=== PATIENT | female | born 1995 | race Hispanic/Latino ===

== ENCOUNTER 2018-09-16 17:10 | Emergency (ER) | payer BC ==
[2018-09-16 18:16] VITALS: BP 109/77
--- NOTE | 2018-09-16 18:52 | Emergency Department Report ---
ED Syncope HPI - General Chief Complaint: Syncope Stated Complaint: SYNCOPY Time Seen by Provider: 09/16/18 18:46 Source: patient Exam Limitations: no limitations - History of Present Illness Initial Comments: Patient is a 22-year-old female that presents from [facility] for evaluation of a syncopal episode. Patient states that she received a Rocephin shot and passed out. Patient states she is taking a Rocephin shot for a possible STD and oral infection. Patient states she's also taken penicillin for the oral infection. Patient states that she passes out every time she gets a shot. Patient states she is back to normal. Patient states her episode was witnessed and it was a brief loss of consciousness per the staff at detox. Patient had an IV started by EMS and given normal saline. Patient states her blood pressure was also low initially but has returned to normal. Patient states that her oral infection is improving. Patient states the pain is decreasing. Timing/Prior Episodes: no prior history, single episode today Precipitating Factors: Positive: lightheadedness Context: standing Loss of Consciousness: brief (seconds) Current Symptoms: back to normal ED Review of Systems ROS: Stated complaint: SYNCOPY Other details as noted in HPI Constitutional: denies: chills, fever Eyes: denies: eye pain, eye discharge, vision change ENT: denies: ear pain, throat pain Respiratory: denies: cough, shortness of breath, wheezing Cardiovascular: denies: chest pain, palpitations Endocrine: no symptoms reported Gastrointestinal: denies: abdominal pain, nausea, diarrhea Genitourinary: denies: urgency, dysuria, discharge Musculoskeletal: denies: back pain, joint swelling, arthralgia Skin: denies: rash, lesions Neurological: denies: headache, weakness, paresthesias Psychiatric: denies: anxiety, depression Hematological/Lymphatic: denies: easy bleeding, easy bruising ED Past Medical Hx - Past Medical History Previous Medical History?: No - Surgical History Past Surgical History?: Yes - Family History Family history: no significant - Social History Smoking Status: Current Every Day Smoker Substance Use Type: Prescribed, Methamphetamines ED Physical Exam - General Limitations: No Limitations General appearance: alert, in no apparent distress - Head Head exam: Present: atraumatic, normocephalic - Eye Eye exam: Present: normal appearance, PERRL Pupils: Present: normal accommodation - ENT ENT exam: Present: mucous membranes moist, other (left lower jaw swelling noted. Nonfluctuant and cellulitic in nature.) - Neck Neck exam: Present: normal inspection - Respiratory Respiratory exam: Present: normal lung sounds bilaterally. Absent: respiratory distress, wheezes, rales - Cardiovascular Cardiovascular Exam: Present: regular rate, normal rhythm. Absent: systolic murmur, diastolic murmur, rubs, gallop - GI/Abdominal GI/Abdominal exam: Present: soft, normal bowel sounds - Extremities Exam Extremities exam: Present: normal inspection - Back Exam Back exam: Present: normal inspection - Neurological Exam Neurological exam: Present: alert, oriented X3 - Psychiatric Psychiatric exam: Present: normal affect, normal mood - Skin Skin exam: Present: warm, dry, intact, normal color. Absent: rash ED Course Vital Signs 09/16/18 09/16/18 18:12 18:40 Temperature 98.2 F Pulse Rate 81 Respiratory 14 18 Rate Blood Pressure 109/77 O2 Sat by Pulse 100 100 Oximetry - Reevaluation(s) Reevaluation #1: Patient will be given site Medrol through the IV for the inflammation. 09/16/18 18:58 Patient refused lab draw. I discussed the risk of not allowing us to fully evaluate her syncopal episode and patient still refused. Patient voiced understanding of risks. Patient signed AMA. Patient leaving the hospital AGAINST MEDICAL ADVICE. Patient still given follow-up instructions and return to ER precautions 09/16/18 19:48 ED Medical Decision Making - Medical Decision Making Patient is a 22-year-old female that presents emergency room for a vasovagal syncopal episode after receiving a injection. Patient appeared to be stable however patient refused to allow us to draw labs in order to fully investigate her syncopal episode. Patient is to continue most likely secondary to a vasovagal after injection. Patient signed AMA. Patient voiced understanding of risks. Patient signed AMA form. She given Solu-Medrol 125 mg in the ER for oral inflammation and air to oral infection. Patient is already on antibiotics at [facility]. - Differential Diagnosis syncopal episode. Vasovagal. Dehydration. Critical care attestation.: If time is entered above; I have spent that time in minutes in the direct care of this critically ill patient, excluding procedure time. ED Disposition Clinical Impression: Oral infection, Vasovagal episode Syncopal episodes Qualifiers: Syncope type: unspecified Qualified Code(s): R55 - Syncope and collapse Disposition: LEFT AGAINST MED ADVICE Is pt being admited?: No Does the pt Need Aspirin: No Condition: Undetermined Additional Instructions: Patient to return to [place] [facility]. Patient to follow-up with primary care in 2- 3 days. Patient to take Tylenol or ibuprofen when necessary for pain. Patient to return to ER if condition worsens. Patient to take meds as directed. Patient to increase water. Patient to rest. Patient to continue all meds. Referrals: DIDIER AJ MD [Primary Care Provider] - 2-3 Days Time of Disposition: 19:50
[2018-09-16] MEDS ORDERED: SOLU-Medrol IV ONE (18:58)
== END 2018-09-16 20:32 | disposition left against medical advice (07) ==
LOC: ED 17:10
DX: R55 Syncope and collapse (principal); B37.0 Candidal stomatitis; F17.200 Nicotine dependence, unspecified, uncomplicated; F15.10 Other stimulant abuse, uncomplicated
CPT/HCPCS: 96374; 99283; J2930